=== PATIENT | female | born 2005 | race Caucasian/White ===

== ENCOUNTER 2024-03-01 13:30 | Emergency (ER) | payer BC ==
[~2024-03-01] VITALS: Ht 172.7 cm; Wt 70.5 kg
[~2024-03-01 13:30] MED LIST: BENTYL 10MG10 MG/CAP PO; NO HOME MEDICATIONS; ZOFRAN ODT4 MG PO
[2024-03-01 14:23] LABS: TRICYCLIC ANTIDEPRESS URINE NEGATIVE (NEGATIVE)
[2024-03-01 14:27] LABS: BASO % 0.4 % (0.0-2.0); GRAN # 6.1 K/mm3 (1.4-6.5); GRAN % 80.2 % (42.2-75.2); HEMATOCRIT 40.5 % (35.0-45.0); HEMOGLOBIN 13.3 g/dl (12.0-15.0); LYMPH # 1.2 K/mm3 (1.2-3.4); LYMPH % 15.2 % (20.0-51.0); MEAN CELL VOLUME 95 fl (80.0-95.0); MEAN CORPUSCULAR HEMOGLOBIN 31 pg (26-32); MEAN CORPUSCULAR HGB CONC 33 g/dl (33.0-37.0); MONO # 0.3 K/mm3 (0.1-0.6); MONO % 4.1 % (1.7-9.3); PLATELET COUNT 248 K/mm3 (130-400); RED BLOOD COUNT 4.28 M/mm3 (4.10-5.30); REDCELL DISTRIBUTION WIDTH-CV 12.5 % (11.5-14.5)
[2024-03-01 14:47] LABS: ALANINE AMINOTRANSFERASE 15 U/L (0-55); ALBUMIN 4.2 g/dL (3.5-5.0); ALCOHOL(ethanol),MEDICAL < 10 mg/dL (0-10); ALKALINE PHOSPHATASE 56 U/L (40-150); ANION GAP 11 mmol/L (7-16); AST,SGOT 22 U/L (5-34); BILIRUBIN,TOTAL 0.4 mg/dL (0.2-1.2); BLOOD UREA NITROGEN 13 mg/dL (8-21); CALCIUM 9.4 mg/dL (8.4-10.2); CHLORIDE 107 mEq/L (98-107); CREATININE, serum 1.12 mg/dL (0.57-1.11); GLUCOSE 148 mg/dL (70-99); SODIUM 141 mEq/L (136-145); TOTAL PROTEIN 7.9 g/dl (6.2-8.1)
[2024-03-01 21:58] VITALS: BP 119/65; PULSE 85; TEMP 98.7
== END 2024-03-01 22:33 ==
LOC: COL.ER 13:30
PROVIDERS: Personal Emergency Response Attendant
DX: F32.A Depression, unspecified (principal); R45.851 Suicidal ideations; Z91.040 Latex allergy status

== ENCOUNTER 2024-08-01 19:46 | Emergency (ER) | payer BC ==
[~2024-08-01] VITALS: Ht 172.7 cm; Wt 72.7 kg
[2024-08-01 20:15] LABS: COLLECTION METHOD CLEAN CATCH
[2024-08-01 20:28] LABS: PH 5.5 (5.0-8.5); URINE APPEARANCE CLEAR (CLEAR/HAZY); URINE BLOOD 1+ (NEGATIVE); URINE COLOR YELLOW (YELLOW); URINE GLUCOSE NEGATIVE (NEGATIVE); URINE KETONE TRACE (NEGATIVE); URINE NITRATE NEGATIVE (NEGATIVE); URINE PROTEIN(semi-quant) NEGATIVE (NEGATIVE); URINE UROBILINOGEN 0.2 E.U/dL (0.2-1.0)
[2024-08-01 20:30] LABS: TRICYCLIC ANTIDEPRESS URINE NEGATIVE (NEGATIVE)
[2024-08-01 20:39] LABS: BASO % 0.6 % (0.0-2.0); EOS # 0.1 K/mm3 (0.0-0.7); EOS % 0.9 % (0.0-4.0); GRAN # 4.3 K/mm3 (1.4-6.5); GRAN % 66.7 % (42.2-75.2); HEMATOCRIT 41.2 % (35.0-45.0); HEMOGLOBIN 13.5 g/dl (12.0-15.0); LYMPH # 1.7 K/mm3 (1.2-3.4); LYMPH % 26.5 % (20.0-51.0); MEAN CELL VOLUME 93 fl (80.0-95.0); MEAN CORPUSCULAR HEMOGLOBIN 31 pg (26-32); MEAN CORPUSCULAR HGB CONC 33 g/dl (33.0-37.0); MEAN PLATELET VOLUME 10.1 fl (7.4-10.4); MONO # 0.3 K/mm3 (0.1-0.6); MONO % 5.1 % (1.7-9.3); PLATELET COUNT 251 K/mm3 (130-400); RED BLOOD COUNT 4.42 M/mm3 (4.10-5.30); REDCELL DISTRIBUTION WIDTH-CV 12.3 % (11.5-14.5)
[2024-08-01 20:59] LABS: ALANINE AMINOTRANSFERASE 73 U/L (0-55); ALBUMIN 4.3 g/dL (3.5-5.0); ALCOHOL(ethanol),MEDICAL < 10 mg/dL (0-10); ALKALINE PHOSPHATASE 63 U/L (40-150); ANION GAP 12 mmol/L (7-16); AST,SGOT 114 U/L (5-34); BILIRUBIN,TOTAL 0.3 mg/dL (0.2-1.2); BLOOD UREA NITROGEN 13 mg/dL (8-21); CALCIUM 9.7 mg/dL (8.4-10.2); CHLORIDE 106 mEq/L (98-107); GLUCOSE 92 mg/dL (70-99); POTASSIUM 4.1 mEq/L (3.5-4.5); SALICYLATE < 5.0 mg/dL (15.0-30.0); SODIUM 140 mEq/L (136-145); TOTAL PROTEIN 8.1 g/dl (6.2-8.1)
[2024-08-01] MEDS ORDERED: hydrOXYzine HCl 25 MG TAB PO ONE (23:45)
[2024-08-01] MEDS ORDERED: Sertraline 100 MG TAB PO ONE (23:45)
[2024-08-02] MEDS ORDERED: Sertraline 50 MG TAB PO ONE ×2 (01:30)
[2024-08-02 03:57] VITALS: TEMP 97.9
[2024-08-02 07:20] VITALS: BP 110/59; PULSE 73
== END 2024-08-02 07:20 ==
LOC: COL.ER 19:46
PROVIDERS: Physician Assistant
DX: R45.851 Suicidal ideations (principal)